=== PATIENT | female | born 1985 | race Two or more races ===

== ENCOUNTER 2016-10-05 11:35 | Emergency (ER) | payer SELFPAY ==
[2016-10-05 11:57] VITALS: BP 143/76
--- NOTE | 2016-10-05 12:01 | ER Document Report ---
ED Medical Screen (RME) - General Stated Complaint: FLU LIKE SYMPTOMS Notes: onset: 6-7 days ago headache, body aches, chills, diaphoresis, productive cough without SOB or wheezing, nasal drainage decreased appetite without n/v, no diarrhea did not receive a flu vaccine this year TRAVEL OUTSIDE OF THE [place] IN LAST 30 DAYS: No - Related Data Allergies/Adverse Reactions: No Known Allergies Allergy (Verified 10/05/16 11:57) Physical Exam - Vital signs Vitals: Temp Pulse Resp BP Pulse Ox 98.2 F 108 H 18 143/76 H 98 10/05/16 11:56 10/05/16 11:56 10/05/16 11:56 10/05/16 11:56 10/05/16 11:56 Course - Vital Signs Vital signs: Temp Pulse Resp BP Pulse Ox 98.2 F 108 H 18 143/76 H 98 10/05/16 11:56 10/05/16 11:56 10/05/16 11:56 10/05/16 11:56 10/05/16 11:56
--- NOTE | 2016-10-05 13:09 | ER Document Report ---
ED General - General Chief Complaint: Flu Symptoms Stated Complaint: FLU LIKE SYMPTOMS Notes: Patient has been feeling ill since last Wednesday or Wednesday. She started out having a headache at that time associated with some neck and body aches and cough. During this past week, the symptoms have remained and her headache seems to have worsened. She's had some chills but not noted any fever. She's been sleeping a lot. She continues to have a cough which is productive of green sputum. Has been nauseated but not vomiting. No diarrhea. Has been taking Motrin with no relief. She has 2 children and a at home and the 9-year-old son has had respiratory symptoms like this patient. Patient is a cigarette smoker. No history of any lung diseases. No UTI symptoms. LMP September 14. On no regular prescription medications. No surgeries. TRAVEL OUTSIDE OF THE [place] IN LAST 30 DAYS: No - Related Data Allergies/Adverse Reactions: No Known Allergies Allergy (Verified 10/05/16 11:57) Past Medical History - Social History Smoking Status: Current Every Day Smoker Cigarette use (# per day): Yes - 12 Chew tobacco use (# tins/day): No Frequency of alcohol use: None Drug Abuse: None Family History: Reviewed & Not Pertinent Patient has suicidal ideation: No Patient has homicidal ideation: No Pulmonary Medical History: Denies: Hx Asthma, Hx COPD Review of Systems - Review of Systems Notes: REVIEW OF SYSTEMS: CONSTITUTIONAL : Denies fever, but has had sweats. EENT: Denies eye, ear, nose or mouth or throat pain or other symptoms. CARDIOVASCULAR: Denies chest pain. RESPIRATORY: Has a cough and chest congestion, productive cough of green sputum , but no shortness of breath. GASTROINTESTINAL: Has nausea, but denies abdominal pain, vomiting, or diarrhea. GENITOURINARY: Denies difficulty or painful urinating, urinary frequency, blood in urine. MUSCULOSKELETAL: Patient has posterior neck pain. Denies back pain. Denies joint pain or swelling. SKIN: Denies rash or skin lesions. NEUROLOGICAL: Denies LOC or altered mental status. See history of present illness regarding headache. Denies sensory loss or motor deficits. ALL OTHER SYSTEMS REVIEWED AND NEGATIVE. Physical Exam - Vital signs Vitals: Temp Pulse Resp BP Pulse Ox 98.2 F 108 H 18 143/76 H 98 10/05/16 11:56 10/05/16 11:56 10/05/16 11:56 10/05/16 11:56 10/05/16 11:56 Interpretation: Tachycardic - Very slight at 109.. No: Hypotensive, Hypoxic, Tachypneic, Febrile - Notes Notes: PHYSICAL EXAMINATION: GENERAL: Well-appearing, in no acute distress. Afebrile. Very slight tachycardia. Otherwise, vital signs essentially normal. HEAD: Atraumatic, normocephalic. ENT: oropharynx clear without exudates. Moist mucous membranes. NECK: Normal range of motion, supple. Supple and patient can easily touch her chin on her chest, although she says it hurts in the back of her neck. She does not have a stiff neck. LUNGS: Breath sounds clear and equal bilaterally. No wheezes, rhonchi, or rales heard. HEART: Regular rate and rhythm without murmurs. Heart rate 100 at bedside by me. ABDOMEN: Soft, nontender. No guarding or rebound. BACK: No tenderness throughout entire back. EXTREMITIES: Normal range of motion without pain. NEUROLOGICAL: Normal speech, normal gait. Normal sensory, motor, and reflex exams. Awake, alert, and oriented x3. Cranial nerves normal. PSYCH: Normal mood, normal affect. SKIN: Warm, dry, no rashes. Course - Re-evaluation Re-evalutation: 10/05/16 13:35 Patient's history and physical findings are not indicative of meningitis, in my opinion, at this time. Patient does not have a stiff neck, only pain in the posterior aspect of the neck with extreme flexion. She has some muscle tenderness in the lower posterior neck region. She's not actually febrile and does not complain of having been febrile, only sweats. Patient does not appear toxic. With the x-ray finding of a pneumonia, I am providing the patient with an antibiotic that should clear that problem and hopefully her headache will resolve over the next few days. She's been advised to return in 3 days for reevaluation, if it's not better. - Vital Signs Vital signs: Temp Pulse Resp BP Pulse Ox 98.2 F 108 H 18 143/76 H 98 10/05/16 11:56 10/05/16 11:56 10/05/16 11:56 10/05/16 11:56 10/05/16 11:56 - Diagnostic Test Radiology reviewed: Image reviewed, Reports reviewed - Radiologist reads a faint area of pneumonia in the right upper lobe. It's very difficult to see, in my opinion. Discharge - Discharge Clinical Impression: Flu-like symptoms Headache Qualifiers: Headache type: unspecified Headache chronicity pattern: chronic headache Intractability: intractable Qualified Code(s): R51 - Headache Pneumonia Qualifiers: Pneumonia type: due to unspecified organism Laterality: right Lung location: upper lobe of lung Qualified Code(s): J18.1 - Lobar pneumonia, unspecified organism Condition: Stable Disposition: HOME, SELF-CARE Additional Instructions: HEADACHE: The physician does not feel that the headache you are experiencing has a serious underlying cause. Most headaches are due to emotional stress, with resultant muscle tension (tension headache). Occasionally, headaches are secondary to changes in the blood vessels of the scalp (vascular headache and migraine headache). Sometimes, a headache is the first symptom of another developing illness, such as a viral infection. You have no evidence of stroke, bleeding, meningitis, or other serious cause of your headache. The treatment of headaches varies with the severity and cause of the pain. Not all headaches need pain shots. In fact, there is evidence that using narcotics for headaches may make them worse in the long run. The physician will determine the therapy that's in your best interest. If you develop a fever, if the headache is different from any you've previously experienced, or if the headache progressively worsens, then call your physician at once or go to the emergency room. UPPER RESPIRATORY ILLNESS: You have a viral infection of the respiratory passages -- a "cold." This common infection causes nasal congestion, drainage, and often sore throat and cough. It is highly contagious. The disease usually lasts about 10 to 14 days. There is no "cure" for the viral infection -- it must run its course. If there is a complication, such as bacterial infection in the nose, sinuses, middle ear, or bronchial tubes, antibiotics may be required. The antibiotics won't affect the virus. Drink plenty of fluids. A humidifier may help. An expectorant medication or decongestant may make you more comfortable. Use acetaminophen or ibuprofen for fever or aches. See the doctor if fever persists over two days, if there is any significant worsening of your symptoms, or if you simply fail to improve as expected. Viral Syndrome The physician has diagnosed a viral infection. Viruses not only cause "colds," but can cause many different symptoms including generalized aching, fever, headache, cough, diarrhea, nausea, vomiting, and fatigue. The treatment, for the most part, is simply relief of symptoms. This means that antibiotics are usually not given. Rest, fluids, pain medications and, occasionally, medication for the specific symptoms that are most bothersome will be prescribed. Use good handwashing to avoid passing the virus to others. Shared toys should be cleaned with disinfectant. Clean the toilets, sinks, and counter surfaces in bathrooms. Launder clothing in hot water. Contact the physician if you develop any new or unusual symptoms such as severe headache, stiff neck, high fever, chest pain, productive cough, or shortness of breath. You should be rechecked if you don't see marked improvement within seven to 10 days. PNEUMONIA: Your examination indicates that you have pneumonia. This is an infection of the lung tissue, usually caused by bacteria or a virus. Symptoms include cough, fever, shaking chills, chest pain, shortness of breath, and coughing up bloody sputum. Treatment for bacterial pneumonia includes rest, antibiotics for 10 to 14 days, increasing your clear liquid intake, a cool mist humidifier at your bedside, and fever medication. Often, a repeat chest X-ray is performed in a few weeks--even if you feel better--to ascertain whether the infection has completely resolved and no underlying lung problem is present. You should call the physician if you develop persistent vomiting, high fever that does not respond to fever medication, increasing shortness of breath , confusion, or lethargy. Also, failure to improve within two to three days is an indication for re-examination. ANTIBIOTIC THERAPY: You have been given an antibiotic prescription. It's important that you take all the medication, unless instructed otherwise by your physician. Failure to complete the entire course can result in relapse of your condition. Common side effects of antibiotics include nausea, intestinal cramping, or diarrhea. Women may develop vaginal yeast infections, and babies can get yeast (thrush) in the mouth following the use of antibiotics. Contact your physician if you develop significant side effects from this medication. Allergy to this antibiotic can result in hives, wheezing, faintness, or itching. If symptoms of allergy occur, stop the medication and call the doctor. AZITHROMYCIN: Azithromycin (Zithromax) is a broad spectrum antibiotic in the same class as erythromycin. It can treat a variety of bacterial infections, but is most frequently used for respiratory infections. Azithromycin is extremely long-lasting. It accumulates in body tissues and continues to kill bacteria for many days. In order to improve absorption, Azithromycin should be taken at least one hour before or two hours after a meal. It does not have the same strong tendency to upset the stomach as erythromycin and is usually very well tolerated. Patients who have had a rash or other true allergic reactions to erythromycin should not take this medication. Call if you develop gastrointestinal distress, severe diarrhea, rash, hives, itching, or shortness of breath. SMOKING: If you smoke, you should stop smoking. The tar and chemicals in cigarette smoke are harmful. Smoking has been shown to cause: emphysema chronic bronchitis lung cancer mouth and throat cancer stomach and pancreas cancer premature aging defects In addition, smoking increases ear and lung infections in children of smokers. ANTINAUSEA MEDICATION: You have been given a medication to suppress nausea and vomiting. This type of medication can be given as a shot, pill, or suppository. It will usually last for many hours. Pills and shots usually last six to eight hours, suppositories last about 12 hours. For the typical illness, only one or two doses of the medication may be necessary. Mild lightheadedness may occur. This type of medicine can cause drowsiness. Do not drive or operate dangerous machinery while under its influence. Do not mix with alcohol. See your doctor at once if you have muscle spasms or tightness, or uncontrollable motions (particularly of the neck, mouth, or jaw). Persistent vomiting or severe lightheadedness should also be evaluated by the physician. ORAL NARCOTIC MEDICATION: You have been given a prescription for pain control. This medication is a narcotic. It's best taken with food, as nausea can result if taken on an empty stomach. Don't operate machinery or drive within six hours of taking this medication. Do not combine this medicine with alcohol, or with any medication which can cause sedation (such as cold tablets or sleeping pills) unless you get permission from the physician. Narcotics tend to cause constipation. If possible, drink plenty of fluids and eat a diet high in fiber and fruits. FOLLOW-UP CARE: If you have been referred to a physician for follow-up care, call the physician s office for an appointment as you were instructed or within the next two days. If you experience worsening or a significant change in your symptoms, notify the physician immediately or return to the Emergency Department at any time for re-evaluation. Return for reevaluation if you have no improvement in your symptoms by 72 hours , . Return sooner if you develop fever, vomiting, or other new symptoms. Prescriptions: Azithromycin [Zithromax 250 mg Tablet] 250 mg PO ASDIR PRN #6 tablet PRN Reason: Oxycodone HCl/Acetaminophen [Percocet 5-325 mg Tablet] 1 - 2 tab PO Q4H PRN #20 tablet PRN Reason: Promethazine HCl [Phenergan 25 mg Tablet] 1 - 2 tab PO Q6H PRN #20 tablet PRN Reason: Forms: Smoking Cessation Education
== END 2016-10-05 13:14 | disposition home or self-care (01) ==
LOC: ER 11:35
DX: J18.1 Lobar pneumonia, unspecified organism (principal); R51 Headache; M54.2 Cervicalgia; R05 Cough; R68.83 Chills (without fever); R11.0 Nausea; R61 Generalized hyperhidrosis; F17.210 Nicotine dependence, cigarettes, uncomplicated; R09.89 Other specified symptoms and signs involving the circulatory and respiratory systems
CPT/HCPCS: 71020; 87804; 99283